=== PATIENT | male | born 1955 | race Hispanic/Latino ===

== ENCOUNTER 2018-11-08 07:58 | Outpatient (CLI) | payer BC | END 2018-11-08 07:59 | disposition home or self-care (01) | LOC: CARDIO 07:58 | DX: I10 Essential (primary) hypertension (principal); I48.91 Unspecified atrial fibrillation; F17.200 Nicotine dependence, unspecified, uncomplicated; R60.9 Edema, unspecified; R07.89 Other chest pain; Z79.01 Long term (current) use of anticoagulants; Z79.899 Other long term (current) drug therapy ==